=== PATIENT | female | born 2000 | race Two or more races ===

== ENCOUNTER 2019-03-04 15:55 | Emergency (ER) | payer OTHER ==
[~2019-03-04] VITALS: Ht 175.3 cm; Wt 95.3 kg
[2019-03-04 17:04] VITALS: BP 119/79
== END 2019-03-04 19:13 | disposition home or self-care (01) ==
LOC: ER 15:55
DX: S09.90XA Unspecified injury of head, initial encounter (principal); M54.9 Dorsalgia, unspecified; W17.89XA Other fall from one level to another, initial encounter; Y93.89 Activity, other specified; Y92.89 Other specified places as the place of occurrence of the external cause; Y99.8 Other external cause status
CPT/HCPCS: 70450; 72070; 81025

== ENCOUNTER 2019-03-31 13:43 | Emergency (ER) | payer MEDICAID, OTHER ==
[~2019-03-31] VITALS: Ht 175.3 cm; Wt 90.3 kg
[2019-03-31 16:51] VITALS: BP 121/75
[2019-03-31] MEDS ORDERED: ACETAMINOPHEN/CODEINE#3 (300/30mg) TAB PO ONE (18:30)
== END 2019-03-31 18:57 | disposition home or self-care (01) ==
LOC: ER 13:43
DX: M25.531 Pain in right wrist (principal); R11.0 Nausea; R51 Headache; R20.2 Paresthesia of skin
CPT/HCPCS: 29125; 73110